=== PATIENT | female | born 1985 | race Asian ===

== ENCOUNTER → 2018-11-18 | Outpatient (CLI) | payer MEDICAID | LOC: FIMAGING 09:27 | PROVIDERS: ATTEND Physician Assistant | DX: O09.292 Supervision of pregnancy with other poor reproductive or obstetric history, second trimester (principal); O26.842 Uterine size-date discrepancy, second trimester; O34.219 Maternal care for unspecified type scar from previous cesarean delivery; Z3A.30 30 weeks gestation of pregnancy ==